=== PATIENT | male | born 1950 | race Hispanic/Latino ===

== ENCOUNTER 2023-01-09 14:47 | Emergency (ER) | payer SELFPAY ==
[2023-01-09] VITALS (8 sets, daily range): BP systolic 109–163; BP diastolic 60–123
[~2023-01-09] VITALS: Ht 160 cm; Wt 72.5 kg
[2023-01-09 15:23] LABS: BASO% 0.6 % (0-3); EOS% 2.5 % (0-8); HEMOGLOBIN 13.7 g/dl (14.0-18.0); LYMPH% 20.1 % (15-41); MEAN CELL VOLUME 103.8 fL CALC (80.0-100.0); MEAN CORPUSCULAR HGB 34.7 pG CALC (26.0-32.0); MEAN CORPUSCULAR HGB CONC 33.4 g/dL CAL (32.0-36.0); MONO% 8.4 % (2-13); NEUT# 3.26 thou/uL (1.82-7.42); NEUT% 68.4 % (42-76); RED BLOOD COUNT 3.95 mill/uL (4.70-6.10); RED CELL DISTRI WIDTH 12.6 % (11.5-15.5)
[2023-01-09 15:43] LABS: ALBUMIN 4.4 g/dL (3.2-5.0); ALKALINE PHOSPHATASE 88 u/l (38-126); ANION GAP 14 (6-22 (CALC)); BILIRUBIN, TOTAL 0.7 mg/dL (0.2-1.3); BUN 13 mg/dL (8-23); BUN/CREATININE RATIO 20 (12-20 (CALC)); CARBON DIOXIDE 29 mmol/l (22-30); CHLORIDE 104 mmol/l (95-108); CREATININE 0.7 mg/dL (0.7-1.3); GFR FOR AFR.AMER. > 60 ML/MIN (>=60 (CALC)); GFR OTHER RACES > 60 ML/MIN (>=60 (CALC)); POTASSIUM 4.3 mmol/l (3.5-5.1); SGOT/AST 28 u/l (19-48); SODIUM 143 mmol/l (137-146); TOTAL PROTEIN 7.1 g/dL (6.3-8.2)
[2023-01-09] MEDS ORDERED: PREDNISONE20 MG PO (16:51)
== END 2023-01-09 17:28 | disposition home or self-care (01) | DRG 645 ==
LOC: ED 14:47
PROVIDERS: Nurse Practitioner
DX: E07.89 Other specified disorders of thyroid (principal); R59.0 Localized enlarged lymph nodes
CPT/HCPCS: Q9967

== ENCOUNTER 2023-02-16 02:26 | Inpatient (IN) | payer SELFPAY ==
[2023-02-16] VITALS (17 sets, daily range): BP systolic 97–146; BP diastolic 42–64
[~2023-02-16] VITALS: Ht 162.6 cm; Wt 57.0 kg
[~2023-02-16 02:26] MED LIST: PREDNISONE20 MG PO
--- NOTE | 2023-02-16 02:28 | NUR ---
PATIENT TO ROOM 10 VIA WHEELCHAIR. UNDRESSED INTO A GOWN, PLACED ON MONITOR. TRIAGE COMPLETED AT BEDSIDE WITH TRASNLATION ASSISTANCE FROM SON D/T PT DIALECT OF UKRAINIAN.
[2023-02-16] MEDS ORDERED: GABAPENTIN100 MG PO (02:58)
[2023-02-16] MEDS ORDERED: SENEXON-S1 TAB PO ×2 (02:59→05:56)
[2023-02-16] MEDS ORDERED: OXYCODONE5 M1 PO (03:00)
[2023-02-16] MEDS ORDERED: FIORICET PO (03:00)
[2023-02-16] MEDS ORDERED: PEPCID20 MG PO (03:00)
[2023-02-16] MEDS ORDERED: ZOFRAN4 MG/TAB PO (03:01)
[2023-02-16 03:14] LABS: BASO% 0.3 % (0-3); HEMATOCRIT 38.4 % (39.0-50.0); HEMOGLOBIN 12.9 g/dl (14.0-18.0); IMMATURE GRANULOCYTES 0.3 % (0.0-5.0); LYMPH% 2.7 % (15-41); MEAN CELL VOLUME 102.7 fL CALC (80.0-100.0); MEAN CORPUSCULAR HGB 34.5 pG CALC (26.0-32.0); MEAN CORPUSCULAR HGB CONC 33.6 g/dL CAL (32.0-36.0); MONO% 7.4 % (2-13); NEUT# 6.84 thou/uL (1.82-7.42); NEUT% 89.3 % (42-76); RED BLOOD COUNT 3.74 mill/uL (4.70-6.10); RED CELL DISTRI WIDTH 13.1 % (11.5-15.5)
--- NOTE | 2023-02-16 03:16 | NUR ---
IVF HUNG, PATIENT MEDICATED ORDERED. WILL MONITOR TEMP FOR EFFECT.
[2023-02-16 03:21] LABS: ALBUMIN 3.6 g/dL (3.2-5.0); BUN 16 mg/dL (8-23); BUN/CREATININE RATIO 18 (12-20 (CALC)); CARBON DIOXIDE 25 mmol/l (22-30); CHLORIDE 100 mmol/l (95-108); CREATININE 0.9 mg/dL (0.7-1.3); GFR FOR AFR.AMER. > 60 ML/MIN (>=60 (CALC)); GFR OTHER RACES > 60 ML/MIN (>=60 (CALC))
[2023-02-16 03:29] LABS: URINE COLOR YELLOW; URINE GLUCOSE - DIPSTICK NEGATIVE (NEGATIVE)
[2023-02-16 03:30] LABS: URINE BILIRUBIN - DIPSTICK SEE COMMNET (NEGATIVE); URINE KETONE TRACE mg/dL (NEGATIVE); URINE PROTEIN - DIPSTICK 100 mg/dL (NEG-TRACE); URINE SPECIFIC GRAVITY 1.015
[2023-02-16 03:31] LABS: URINE NITRITE - DIPSTICK NEGATIVE (Negative)
[2023-02-16 03:32] LABS: URINE BLOOD DIPSTICK NEGATIVE (NEGATIVE); URINE LEUK ESTERASE LARGE (NEGATIVE)
[2023-02-16 03:33] LABS: URINE BACTERIA MANY hpf; URINE EPITHELIAL CELLS MODERATE EPI/hpf (0-FEW); URINE WBC >100 WBC/hpf (0-5)
[2023-02-16 03:36] LABS: ALKALINE PHOSPHATASE 181 u/l (38-126); ANION GAP 11 (6-22 (CALC)); POTASSIUM 3.4 mmol/l (3.5-5.1); SGOT/AST 84 u/l (19-48); SODIUM 133 mmol/l (137-146)
--- NOTE | 2023-02-16 04:25 | NUR ---
TEMP IMPROVED. SECOND LITER IVF HUNG. PATIENT TO BE ADMITTED TO FLOOR.
--- NOTE | 2023-02-16 04:45 | NUR ---
REPORT CALLED TO STEVE DELAROSA. PATIENT READIED FOR TRANSPORT TO FLOOR ON MONITOR VIA WHEELCHAIR.
--- NOTE | 2023-02-16 05:00 | NUR ---
RECEIVED REPORT FROM ED NURSE. PT WAS BROUGHT UP VIA WHEELCHAIR. PT AMBULATES WELL. PT ACCOMPANIED BY FRIENDS. STATES THAT PT HAS BEEN FEELING LIKE NOT HIMSELF. ORIENTATED PT TO ROOM AND USE OF CALL LIGHT. SAFTEY PRECAUTIONS IN PLACE AND CALL LIGHT WITHIN REACH.
--- NOTE | 2023-02-16 08:00 | NUR ---
RECEIVE REPORT FROM JORDAN DELAROSA. PATIENT RESTING IN BED STABLE AT THIS TIME. TELE MONITOR ON. PT IS EDUCATED ABOUD MEDICATIONS AND NURSING PLAN FOR TODAY. PT REFER UNDERSTAND. SAFETY AND FALL PRECAUTIONS IN PLACE. CALL LIGHT WITHIN IN REACH.
--- NOTE | 2023-02-16 10:05 | NUR ---
ALL MEDICATIONS ARE RETURNED TO THE PATIENT'S CAREGIVER TO TAKE HOME. HE WAS EDUCATED THAT HE SHOULD NOT GIVE HIM ANY MEDICATION WHILE HE IS HOSPITALIZED. CAREGIVER REFERS TO UNDERSTAND. INSIDE THE MEDICINES THERE WAS 119 OXIDODONE PILLS ACCORDING TO THE ACCOUNT MADE BY TELLY GOMEZ NURSE. CAREGIVER CONFIRMED THAT THIS WAS THE CORRECT AMOUNT AND SIGNED THE DELIVERY IN THE BAG. EVERYTHING WAS RETURNED ACCORDING TO THE RECOMMENDATION OF ANGEL FROM THE PHARMACY.
--- NOTE | 2023-02-16 12:28 | NUR ---
PT REST ON BED. STABLE AT THIS TIME. SAFETY AND FALL PRECAUTIONS IN PLACE. CALL LIGHT WITHIN IN REACH.
--- NOTE | 2023-02-16 16:23 | NUR ---
PT STABLE RESTING IN BED.
[2023-02-17] VITALS (8 sets, daily range): BP systolic 122–162; BP diastolic 45–67
[2023-02-17 07:29] LABS: BASO% 0.1 % (0-3); EOS% 0.1 % (0-8); HEMATOCRIT 33.4 % (39.0-50.0); HEMOGLOBIN 11.4 g/dl (14.0-18.0); IMMATURE GRANULOCYTES 0.3 % (0.0-5.0); LYMPH% 4.4 % (15-41); MEAN CELL VOLUME 100.9 fL CALC (80.0-100.0); MEAN CORPUSCULAR HGB 34.4 pG CALC (26.0-32.0); MEAN CORPUSCULAR HGB CONC 34.1 g/dL CAL (32.0-36.0); MONO% 6.5 % (2-13); NEUT# 6.45 thou/uL (1.82-7.42); NEUT% 88.6 % (42-76); RED BLOOD COUNT 3.31 mill/uL (4.70-6.10); RED CELL DISTRI WIDTH 12.9 % (11.5-15.5)
[2023-02-17 07:44] LABS: ALKALINE PHOSPHATASE 130 u/l (38-126); ANION GAP 10 (6-22 (CALC)); BUN 5 mg/dL (8-23); BUN/CREATININE RATIO 11 (12-20 (CALC)); CARBON DIOXIDE 23 mmol/l (22-30); CHLORIDE 102 mmol/l (95-108); CREATININE 0.5 mg/dL (0.7-1.3); GFR FOR AFR.AMER. > 60 ML/MIN (>=60 (CALC)); GFR OTHER RACES > 60 ML/MIN (>=60 (CALC)); SGOT/AST 55 u/l (19-48); SODIUM 132 mmol/l (137-146)
--- NOTE | 2023-02-17 07:45 | NUR ---
PATIENT IS ALERT AND ORIENTED X3. [place] SPEAKING, CAREGIVER/SON WAS PRESENT THIS SHIFT. PATIENT HAD A FEVER, TEMP AT 100.7, TYLENOL WAS GIVEN, MED EFFECTIVE. ALL SAFETY MEASURES IN PLACE. CALL LIGHT WITHIN REACH, WILL CONTINUE TO MONITOR.
--- NOTE | 2023-02-17 08:15 | NUR ---
PERFROMED BEDSIDE REPORT WITH NIGHTSHIFT NURSE. PT NOTED SITTING UP ON SIDE OF BED EATING BREAKFAST, SON IN ROOM. PT IS SWEDISH SPEAKING ONLY BUT SON IS ABLE TO TRANSLATE. PT A/OX3, RM AIR, DENIES ANY PAIN AT THIS TIME. IV SITE NOTED, APPEARS HEALTHY AND INTACT. EDUCATED PT AND SON ON PLAN OF CARE TODAY. CALL LIGHT WITHIN REACH AND SAFETY PRECAUTIONS IN PLACE.
[2023-02-17 08:24] LABS: BILIRUBIN, TOTAL 0.5 mg/dL (0.2-1.3)
[2023-02-17 08:25] LABS: ALBUMIN 2.5 g/dL (3.2-5.0)
--- NOTE | 2023-02-17 12:00 | NUR ---
PT SITTING UP ON SIDE OF BED, LUNCH AT BEDSIDE. PT HAS VISITOR IN ROOM WITH FAMILY AT THIS TIME. DENIES ANY PAIN. NO S.S OF DISTRESS. CALL LIGHT WITHIN REACH AND SAFETY PRECAUTIONS IN PLACE.
--- NOTE | 2023-02-17 16:24 | NUR ---
PT DID COMPLAIN EARLIER OF NAUSEA AND HEADACHE. PAIN MEDICATION AND NAUSEA MEDICATION WERE ADMINISTERED. FOLLOW UP WITH PT AND SYMPTOMS HAVE SUBSIDED AT THIS TIME. PT IS LAYING FOWELRS IN BED, VISITORS IN RM WITH PT. CALL LIGHT WITHIN REACH AND SAFETY PRECAUTIONS IN PLACE.
--- NOTE | 2023-02-17 20:35 | NUR ---
PT RESTING IN BED, NO SIGNS OF DISTRESS NOTED, RESP EVEN AND UNLABORED. PT ALERT AND ORIENTED X3, NO EDEMA, DISCUSSED POC, VERBALIZED UNDERSTANDING. 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 IVF INFUSING, SKIN INTACT. ASSESSMENT COMPLETED, CALL LIGHT IN REACH,CONTINUE TO MONITOR.
[2023-02-18] VITALS (7 sets, daily range): BP systolic 108–151; BP diastolic 51–63
--- NOTE | 2023-02-18 | NUR ---
PT RESTING IN BED, C/O NECK PAIN, PT MEDICATED PER MAR. PT AMBULATED WITH STEADY GAIT TO BATHROOM, NO SIGNS OF DISTRESS NOTED, RESP EVEN AND UNLABORED. FRIEND AT BEDSIDE, CALL LIGHT IN REACH,CONTINUE TO MONITOR.
--- NOTE | 2023-02-18 04:00 | NUR ---
PT RESTING IN BED, NO SIGNS OF DISTRESS NOTED, RESP EVEN AND UNLABORED. PT DENIES ANY NEEDS OR COMPLAINTS AT THIS TIME, CALL LIGHT IN REACH, FRIEND AT BEDSIDE, CONTINUE TO MONITOR.
[2023-02-18 04:39] LABS: HEMOGLOBIN 11.4 g/dl (14.0-18.0); MEAN CELL VOLUME 99.4 fL CALC (80.0-100.0); MEAN CORPUSCULAR HGB 34.3 pG CALC (26.0-32.0); MEAN CORPUSCULAR HGB CONC 34.5 g/dL CAL (32.0-36.0); RED BLOOD COUNT 3.32 mill/uL (4.70-6.10); RED CELL DISTRI WIDTH 12.9 % (11.5-15.5)
[2023-02-18 04:48] LABS: ALBUMIN 2.8 g/dL (3.2-5.0); ALKALINE PHOSPHATASE 120 u/l (38-126); ANION GAP 10 (6-22 (CALC)); BILIRUBIN, TOTAL 0.5 mg/dL (0.2-1.3); BUN 3 mg/dL (8-23); BUN/CREATININE RATIO 6 (12-20 (CALC)); CARBON DIOXIDE 26 mmol/l (22-30); CHLORIDE 99 mmol/l (95-108); CREATININE 0.5 mg/dL (0.7-1.3); GFR FOR AFR.AMER. > 60 ML/MIN (>=60 (CALC)); GFR OTHER RACES > 60 ML/MIN (>=60 (CALC)); MAGNESIUM 1.7 mg/dL (1.6-2.3); POTASSIUM 2.5 mmol/l (3.5-5.1); SGOT/AST 65 u/l (19-48); SODIUM 132 mmol/l (137-146); TOTAL PROTEIN 5.7 g/dL (6.3-8.2)
--- NOTE | 2023-02-18 05:30 | NUR ---
PT C/O NAUSEA, PT MEDICATED PER MAR, NO SIGNS OF DISTRESS NOTED, RESP EVEN AND UNLABORED. CALL LIGHT IN REACH,CONTINUE TO MONITOR.
--- NOTE | 2023-02-18 06:30 | NUR ---
PT PLACED ON CONTACT PRECAUTIONS FOR ESBL, DISCUSSED WITH PT, VERBALIZED UNDERSTANDING. CALL LIGHT IN REACH,CONTINUE TO MONITOR.
--- NOTE | 2023-02-18 07:00 | NUR ---
BEDSIDE SHIFT REPORT, PT AWAKE AND ALERT RESTING IN BED, C/O DISCOMFORT TO NECK REGION, TELE MONITOR IN PLACE, IVF 0.9 NS INFUSING @ 125 ML/HR TO SITE IN RFA, CALL RODRÍGUEZ IN REACH AND BED LOCKED IN LOWEST POSITION. METAL BALER IN ROOM.
--- NOTE | 2023-02-18 09:47 | NUR ---
BOOKED AN INFECTIOUS DISEASE CONSULT WITH DR DOWELL VIA THE [facility] AT 0947 HRS. PER THE [facility] AND THE PROVIDED I/D SCHEDULE, DR DOWELL IS NOT COVERING TELEHEALTH UNTIL 02/26/23. THE TELEHEALTH SEJAL WOULD NOT ALLOW ME TO CHANGE THE CONSULTING PHYSICIAN. I WILL LEAVE A NOTE TO CHECK WITH [facility] ON Sunday.
--- NOTE | 2023-02-18 12:52 | NUR ---
SITTING UP ON SIDE OF BED, EATS MEAL VERY SLOWLY, PAIN CONCERN ADDRESSED, FAMILY AND CARE-FEATHER CURLING MACHINE OPERATOR IN ROOM.
--- NOTE | 2023-02-18 15:27 | NUR ---
CONSULT WITH INFECTIOUS DISEASE COMPLETED, LANGUAGE WAS A GREAT BARRIER; HOWEVER, ID SAID SHE WOULD REVIEW CHART AND MAKE RECOMMENDATIONS WITH MD.
--- NOTE | 2023-02-18 16:00 | NUR ---
PAIN CONCERN ADDRESSED AND CONTROLLED.
--- NOTE | 2023-02-18 18:29 | NUR ---
APPETITE HAS BEEN POOR FOR BREAKFAST AND LUNCH, ANTIMETIC GIVEN AND PT CONSUMED 100% OF DINNER, EXPRESSES APPRECIATION.
--- NOTE | 2023-02-18 20:48 | NUR ---
family at bedside, pt in om contact precautions. family educated on how to follow contact precautions and handwashing. family indicate understanding.
[2023-02-19] VITALS (8 sets, daily range): BP systolic 123–163; BP diastolic 60–68
--- NOTE | 2023-02-19 00:42 | NUR ---
pt in bed resting with eyes closed breathing is even adn unlabored. no s/s of distress noted. friend at bedside. call light in reach and bed in lowest position.
--- NOTE | 2023-02-19 04:25 | NUR ---
PT IN BED RESTING WITH EYES CLOSED BREATHING EVEN AND UNLABORED. NO S/S OF DISTRESS NOTED. FRIEND AT BEDSIDE. CALL LIGHT IN REACH AND BED IN LOWSET POSITION.
[2023-02-19 04:45] LABS: HEMATOCRIT 32.2 % (39.0-50.0); HEMOGLOBIN 10.9 g/dl (14.0-18.0); MEAN CELL VOLUME 100.9 fL CALC (80.0-100.0); MEAN CORPUSCULAR HGB 34.2 pG CALC (26.0-32.0); MEAN CORPUSCULAR HGB CONC 33.9 g/dL CAL (32.0-36.0); RED BLOOD COUNT 3.19 mill/uL (4.70-6.10)
[2023-02-19 05:05] LABS: ALBUMIN 2.9 g/dL (3.2-5.0); ALKALINE PHOSPHATASE 117 u/l (38-126); ANION GAP 8 (6-22 (CALC)); BILIRUBIN, TOTAL 0.4 mg/dL (0.2-1.3); BUN 3 mg/dL (8-23); BUN/CREATININE RATIO 7 (12-20 (CALC)); CARBON DIOXIDE 29 mmol/l (22-30); CHLORIDE 100 mmol/l (95-108); CREATININE 0.5 mg/dL (0.7-1.3); GFR FOR AFR.AMER. > 60 ML/MIN (>=60 (CALC)); GFR OTHER RACES > 60 ML/MIN (>=60 (CALC)); MAGNESIUM 1.9 mg/dL (1.6-2.3); SGOT/AST 84 u/l (19-48); SODIUM 133 mmol/l (137-146)
--- NOTE | 2023-02-19 08:00 | NUR ---
PT RESTING WITH FAMILY MEMBER AT BEDSIDE. PT EATING BREAKFAST. PT [place]LANDER SPEAKING ONLY. TELE MONITOR IN PLACE. CONTINOUS MONITORING PER ED. STATES NO PAIN AT THIS TIME. NON PRODUCTIVE COUGH NOTED. FALL/SAFTEY PRECAUTION IN PLACE. CALL LIGHT WITHIN REACH
--- NOTE | 2023-02-19 12:30 | NUR ---
PT EATING LUNCH. NO DISTRESS NOTED. FAMILY MEMBER AT BEDSIDE. FALL/SAFTEY PRECAUTION IN PLACE. CALL LIGHT WITHIN REACH.
--- NOTE | 2023-02-19 16:00 | NUR ---
PT RESTING IN BED WITH FAMILY MEMBERS AT BEDSIDE. STATES NO NEEDS AT THIS TIME. FALL/SAFTEY PRECAUTIO KEVIN PLACE. CALL LIGHT WITHIN REACH
--- NOTE | 2023-02-19 17:12 | NUR ---
FINAL BLOOD CULTURE RESULTS CALLED TO DR FREDERICK. PT ON [place] ALREADY NO CHANGES NEEDED.
--- NOTE | 2023-02-19 19:04 | NUR ---
REPORT RECEIVED FROM Anushka LO RN
[2023-02-20] VITALS (9 sets, daily range): BP systolic 125–139; BP diastolic 50–70
--- NOTE | 2023-02-20 00:10 | NUR ---
PATIENT RESTING, NO APPARENT DISTRESS NOTED. RESPIRATIONS EVEN AND UNLABORED, RISE AND FALL OF CHEST NOTED. CALL LIGHT AND BEDSIDE TABLE WITHIN REACH. FRIEND AT BEDSDIE.
--- NOTE | 2023-02-20 04:10 | NUR ---
PATIENT RESTING, NO APPARENT DISTRESS NOTED. RESPIRATIONS EVEN AND UNLABORED, RISE AND FALL OF CHEST NOTED. CALL LIGHT AND BEDSIDE TABLE WITHIN REACH. FRIEND AT BEDSIDE.
[2023-02-20 05:32] LABS: ALBUMIN 2.7 g/dL (3.2-5.0); ALKALINE PHOSPHATASE 111 u/l (38-126); BILIRUBIN, TOTAL 0.4 mg/dL (0.2-1.3); BUN 3 mg/dL (8-23); BUN/CREATININE RATIO 7 (12-20 (CALC)); CARBON DIOXIDE 25 mmol/l (22-30); CHLORIDE 101 mmol/l (95-108); CREATININE 0.5 mg/dL (0.7-1.3); GFR FOR AFR.AMER. > 60 ML/MIN (>=60 (CALC)); GFR OTHER RACES > 60 ML/MIN (>=60 (CALC)); MAGNESIUM 1.9 mg/dL (1.6-2.3); SGOT/AST 111 u/l (19-48); SODIUM 133 mmol/l (137-146); TOTAL PROTEIN 5.2 g/dL (6.3-8.2)
[2023-02-20 05:34] LABS: ANION GAP 11 (6-22 (CALC)); POTASSIUM 3.8 mmol/l (3.5-5.1)
[2023-02-20 05:36] LABS: HEMATOCRIT 33.3 % (39.0-50.0); HEMOGLOBIN 11.3 g/dl (14.0-18.0); MEAN CELL VOLUME 101.2 fL CALC (80.0-100.0); MEAN CORPUSCULAR HGB 34.3 pG CALC (26.0-32.0); MEAN CORPUSCULAR HGB CONC 33.9 g/dL CAL (32.0-36.0); RED BLOOD COUNT 3.29 mill/uL (4.70-6.10); RED CELL DISTRI WIDTH 13.1 % (11.5-15.5)
--- NOTE | 2023-02-20 07:00 | NUR ---
RECEIVE REPORT FROM MICHAEL DELAROSA.
--- NOTE | 2023-02-20 08:00 | NUR ---
Alert and oriented patient x3. He does not report pain or discomfort at the time of this note. TV monitor on. patient is educated and oriented about medications and nursing plan for all. pt refer understand. safety and fall precautions in place. call light within reach.
--- NOTE | 2023-02-20 12:35 | NUR ---
PATIENT RESTING IN BED, NO APPARENT DISTRESS NOTED. RESPIRATIONS EVEN AND UNLABORED, RISE AND FALL OF CHEST NOTED. CALL LIGHT AND BEDSIDE TABLE WITHIN REACH.
--- NOTE | 2023-02-20 16:50 | NUR ---
PT C/O PAIN TO BE MEDICATED PER EMAR.
--- NOTE | 2023-02-20 18:47 | NUR ---
REPORT RECEIVED FROM Eva RAMOS LPN
[2023-02-21 00:14] VITALS: BP 125/68
[2023-02-21 00:21] VITALS: BP 125/68
[2023-02-21 04:45] VITALS: BP 144/78
[2023-02-21 04:53] VITALS: BP 144/78
--- NOTE | 2023-02-21 05:42 | NUR ---
PATIENT RESITN IN BED NO APPARENT DISTRESS NOTED. CALL LIGHT AND BEDSIDE TABLE WITHIN REACH. FRIEND AT BEDSIDE.
--- NOTE | 2023-02-21 05:42 | NUR ---
ATTEMPTED TO COLLECT MORNING LABS. PATIENT IN BATHROOM.
[2023-02-21 06:55] VITALS: BP 148/74
[2023-02-21 07:13] LABS: ALBUMIN 3.2 g/dL (3.2-5.0); ALKALINE PHOSPHATASE 116 u/l (38-126); ANION GAP 7 (6-22 (CALC)); BUN 4 mg/dL (8-23); BUN/CREATININE RATIO 7 (12-20 (CALC)); CARBON DIOXIDE 30 mmol/l (22-30); CHLORIDE 101 mmol/l (95-108); CREATININE 0.6 mg/dL (0.7-1.3); GFR FOR AFR.AMER. > 60 ML/MIN (>=60 (CALC)); GFR OTHER RACES > 60 ML/MIN (>=60 (CALC)); POTASSIUM 3.9 mmol/l (3.5-5.1); SGOT/AST 88 u/l (19-48); SODIUM 134 mmol/l (137-146)
[2023-02-21 07:16] LABS: BILIRUBIN, TOTAL 0.6 mg/dL (0.2-1.3); TOTAL PROTEIN 6.4 g/dL (6.3-8.2)
--- NOTE | 2023-02-21 07:30 | NUR ---
PERFROMED BEDSIDE REPORT WITH NIGHTSHIFT NURSE. PT NOTED SITTING UP ON SIDE OF BED, TABLE INFRONT OF HIM. VISITOR PRESENT IN RM FOR TRANSLATION. PT DENIES ANY PAIN, ON RM AIR, A/OX3. PT STATES FEELING BETTER AND WANTING TO GO HOME TODAY. DID EDUCATE PT ON PLAN OF CARE TODAY AND SCHEDULE. CALL LIGHT WITHIN REACH AND SAFETY PRECAUTIONS IN PLACE.
[2023-02-21] MEDS ORDERED: ERTAPENEM1 G1 IV (10:12)
[2023-02-21 10:39] VITALS: BP 115/66
--- NOTE | 2023-02-21 13:37 | NUR ---
IV site discontinued, cath intact. No edema , no redness, voices no discomfort. Discharge instructions given. Patient verbalizes understanding of same. Discharged in stable condition via Wheelchair to Home with staff. All belongings sent with pt. PT WAS EDUCATED ON PICC LINE, IV THERAPY FOR THE NEXT 11 DAYS, AND CARE FOR PICC LINE.
== END 2023-02-21 13:40 | disposition home or self-care (01) | DRG 871 ==
LOC: ED 02:26 → ED-I 03:50 → ED 04:03 → MS2 04:04
PROVIDERS: Emergency Medicine; ADMIT Internal Medicine; ATTEND Internal Medicine
PROC: 02HV33Z Insertion of Infusion Device into Superior Vena Cava, Percutaneous Approach (ICD-10-PCS; principal; 2023-02-19)
PROC: B518ZZA Fluoroscopy of Superior Vena Cava, Guidance (ICD-10-PCS; 2023-02-19)
DX: A41.51 Sepsis due to Escherichia coli [E. coli] (principal); G93.41 Metabolic encephalopathy; N39.0 Urinary tract infection, site not specified; Z16.12 Extended spectrum beta lactamase (ESBL) resistance; Z16.24 Resistance to multiple antibiotics; R65.20 Severe sepsis without septic shock; C73 Malignant neoplasm of thyroid gland; E87.6 Hypokalemia; B96.89 Other specified bacterial agents as the cause of diseases classified elsewhere; Z92.3 Personal history of irradiation; Z20.822 Contact with and (suspected) exposure to COVID-19
CPT/HCPCS: A9579; J1335; J1650

== ENCOUNTER 2023-02-23 16:54 | Emergency (ER) | payer SELFPAY ==
[~2023-02-23] VITALS: Ht 162.6 cm; Wt 65.7 kg
[~2023-02-23 16:54] MED LIST changes: +ERTAPENEM1 G1 IV; +FIORICET PO; +GABAPENTIN100 MG PO; +OXYCODONE5 M1 PO; +PEPCID20 MG PO; +SENEXON-S1 TAB PO; +ZOFRAN4 MG/TAB PO
[2023-02-23 17:30] VITALS: BP 123/58
[2023-02-23 17:45] VITALS: BP 116/69
[2023-02-23] MEDS ORDERED: MIRALAX17 GM PO (17:59)
[2023-02-23 18:00] VITALS: BP 104/60
[2023-02-23 18:15] VITALS: BP 115/62
[2023-02-23] MEDS ORDERED: CITRATE OF MEGNESIA PO (18:42)
[2023-02-23 19:01] VITALS: BP 115/62
== END 2023-02-23 19:09 | disposition home or self-care (01) | DRG 392 ==
LOC: ED 16:54
DX: K59.00 Constipation, unspecified (principal)